=== PATIENT | female | born 1955 | race Caucasian/White ===

== ENCOUNTER → 2022-03-24 15:55 | Outpatient (BNVA) | payer OTHER, SELFPAY | PROVIDERS: PCP Physician Assistant Medical; Visit Provider Internal Medicine | DX: Z13.89 Encounter for screening for other disorder (principal) ==

== ENCOUNTER 2022-04-06 09:49 | Outpatient (REF) | payer OTHER, SELFPAY ==
--- NOTE | 2022-04-06 13:09 | PFT_ITS ---
INDICATION: Dyspnea. SPIROMETRY: FEV1 to FVC of 85% with an FEV1 of 2.33 L, which is 106% predicted and FVC of 2.72 L, which is 95% predicted. No significant response to bronchodilators noted. Maximum voluntary ventilation 129% predicted. LUNG VOLUMES: Total lung capacity 92% predicted with expiratory residual volume 37% predicted. DIFFUSION CAPACITY: DLCO of 37% predicted COMPARISONS: None. INTERPRETATION: No obstructive nor restrictive ventilatory defects identified. No significant response to bronchodilators noted. Normal maximum voluntary ventilation. Lung volumes are within normal limits and the patient, however, has an isolated moderate diffusion impairment. Clinical correlation warranted. MD PREMA Syed/MODCharlie / [id number]
== END 2022-04-06 09:50 | disposition home or self-care (01) ==
LOC: HO.RESP 09:49
PROVIDERS: PCP Physician Assistant Medical; Visit Provider Internal Medicine
DX: J45.909 Unspecified asthma, uncomplicated (principal); F41.9 Anxiety disorder, unspecified
CPT/HCPCS: 94060; 94727; 94729

== ENCOUNTER → 2022-05-04 10:37 | Outpatient (BNVA) | payer OTHER, SELFPAY | PROVIDERS: PCP Physician Assistant Medical; Visit Provider Internal Medicine | DX: Z13.89 Encounter for screening for other disorder (principal) ==